=== PATIENT | female | born 1975 | race Caucasian/White ===

== ENCOUNTER 2016-11-23 03:53 | Emergency (ER) | payer BC ==
[~2016-11-23] VITALS: Ht 165.1 cm; Wt 165.6 kg
[~2016-11-23 03:53] MED LIST: ADVIL200 M1 PO; ADVIL200 MG PO; ALBUTEROL SULF8.5 GM IH; AMLODIPINE-BEN1 EACH; CIPRO500 MG PO; CRESTOR20 MG; ENDOCET 5-3251 EACH PO; LEVAQUIN500 MG PO; MULTIVITAMIN1 EAC2 PO; PERCOCET 5/31 TABLET PO; PREDNISONE10 MG PO; ZOFRAN4 MG PO
[2016-11-23 04:35] LABS: EOSINOPHIL (%) 2.4 % (0-5); EOSINOPHIL COUNT 0.3 K/uL (0-0.3); HEMATOCRIT 42.6 % (36.0-46.0); IMMATURE GRANULOCYTE (%) 0.5 % (0.0-0.7); IMMATURE GRANULOCYTE COUNT 0.1 K/uL; INSTRUMENT ABS NEUTROPHIL CT 8.8 K/uL; LYMPHOCYTE COUNT 1.6 K/uL (1.0-2.8); MCH 30.5 PG (29.0-34.0); MCHC 33.8 G/DL (30.0-36.0); MCV 90.3 FL (83-99); MONOCYTE (%) 5.2 % (3-12); MONOCYTE COUNT 0.6 K/uL (0-0.8); NEUTROPHIL (%) 77.4 % (45-76); NEUTROPHIL COUNT 8.8 K/uL (1.8-6.4); PLATELET COUNT 248 K/uL (156-360); RBC DIS.WIDTH-CV 12.9 % (11.8-14.6); RBC DIS.WIDTH-SD 42.5 % (39-53); RED BLOOD COUNT 4.72 M/uL (3.80-5.20); WHITE BLOOD COUNT 11.4 K/uL (4.1-10.2)
[2016-11-23 04:45] LABS: CHLORIDE 110 mEq/L (99-109); POTASSIUM 3.8 mEq/L (3.7-5.4); SODIUM 139 mEq/L (136-147)
[2016-11-23 04:47] LABS: GLUCOSE 135 mg/dL (70-99)
[2016-11-23 04:49] LABS: ANION GAP 13 MEQ/L (2-14)
[2016-11-23 04:51] LABS: GFR ESTIMATE (CALCULATED) > 59 mL/min/
[2016-11-23 04:52] LABS: UREA NITROGEN (BUN) 13 mg/dL (9-23)
[2016-11-23 04:57] LABS: ADD MIUA? YES; BILIRUBIN NEGATIVE; BLOOD LARGE; COLOR AMBER ((YELLOW)); GLUCOSE (STRIP) NEGATIVE; KETONES NEGATIVE; LEUKOCYTES MODERATE; NITRITE NEGATIVE; PROTEIN (STRIP) 100; SPECIFIC GRAVITY 1.026 (1.000-1.030); UROBILINOGEN 0.2 MG/DL (0.2-1.0)
[2016-11-23 05:00] LABS: QUANTITATIVE HCG < 4.0 MIU/ML
[2016-11-23 05:41] LABS: RED BLOOD CELLS TNTC /HPF (0-5)
[2016-11-23 05:43] LABS: BACTERIA 2+ /HPF; CASTS NONE SEEN /LPF; CRYSTALS PRESENT; EPITHELIAL CELLS 1+ /HPF; MUCUS RARE /LPF; UCUL ADDED? YES; WHITE BLOOD CELLS 20-30 /HPF (0-5)
[2016-11-23 05:44] LABS: CALCIUM OXALATE CRYSTALS 1+ /HPF
[2016-11-23] MEDS ORDERED: PERCOCET 5/31 TABLET PO (05:56)
[2016-11-23] MEDS ORDERED: INDOCIN50 MG PO (05:56)
[2016-11-23 06:27] VITALS: BP 126/69
== END 2016-11-23 06:28 | disposition home or self-care (01) ==
LOC: EME 03:53
PROVIDERS: Emergency Medicine
DX: N20.1 Calculus of ureter (principal); Z87.442 Personal history of urinary calculi; Z87.891 Personal history of nicotine dependence
CPT/HCPCS: 74176; 80048; 81003; 84702; 85025; 87086; 99281; 99284; J1885; J2270; J2405; J7030

== ENCOUNTER 2017-07-06 17:46 | Emergency (ER) | payer BC ==
[~2017-07-06] VITALS: Ht 165.1 cm; Wt 152.4 kg
[~2017-07-06 17:46] MED LIST changes: +INDOCIN50 MG PO
[2017-07-06] MEDS ORDERED: NEURONTIN300 MG PO (19:35)
[2017-07-06 20:37] VITALS: BP 125/79
== END 2017-07-06 20:38 | disposition home or self-care (01) ==
LOC: EME 17:46
DX: G62.9 Polyneuropathy, unspecified (principal); Z87.442 Personal history of urinary calculi; Z87.891 Personal history of nicotine dependence; Z90.49 Acquired absence of other specified parts of digestive tract; Z88.6 Allergy status to analgesic agent; Z88.5 Allergy status to narcotic agent
CPT/HCPCS: 99281; 99284; J1885